=== PATIENT | male | born 1995 | race Caucasian/White ===

== ENCOUNTER 2021-07-17 01:23 | Observation (INO) | payer MEDICARE, MEDICAID, SELFPAY ==
[2021-07-17] VITALS (84 sets, daily range): BP systolic 88–129; BP diastolic 49–79; PULSE 55–90; RESP 7–24; TEMP 36.8–37.9; O2SAT 94–100
--- NOTE | 2021-07-17 01:15 | RT.EKG_ITS ---
APPROVED REPORT Exam: Resting ECG Reason for Exam: chest pain Patient Location: E HR:76 bpm ECG Measurements Heart Rate 76 AXIS NC 172 P 66 QRSd 84 QRS 94 QT 363 T 70 QTc 407 Conclusion Sinus rhythm...normal P axis, V-rate 60- 99 ST elevation suggests acute pericarditis...ST >0.10mV, ant/lat/inf Normal [place] I have reviewed and interpreted ECG and agree with software generated interpretation.
--- NOTE | 2021-07-17 01:42 | ED.GENADUL_ITS ---
Discharge Plan Disposition Patient Disposition: [facility] INPATIENT Condition: Stable Discharge Details Clinical Impression: Pneumomediastinum, COVID-19 Primary Care Provider: Taz Ferrer ED Provider: Tone Rizzo [place] Meds and New Rx's Prescriptions: No Action acetaminophen 500 mg Tablet 500 mg PO Q6H PRN0RF ibuprofen 200 mg Tablet 200 mg PO Q6H PRN0RF methylphenidate HCl [Concerta] 27 mg Tablet Extended Release 24hr 27 mg PO DAILY 0RF melatonin 5 mg Tablet 5 mg PO HS [id number] Medical Decision Making Patient presenting with onset of pleuritic type chest pain and mild dyspnea which may be related to pain as opposed to true shortness of breath. Noted to have low-grade fever in the department. He has normal heart rate and pulse oximetry. I do appreciate a friction rub on exam. His EKG is sinus rhythm with diffuse slight ST elevation which would be consistent with pericarditis. Patient has no previous recent viral illness and has felt well throughout the day today. IV in place and will dose with ketorolac, send laboratory studies, obtain chest x-ray and reevaluate. Patient laboratory studies significant for mildly elevated white count up to 12.5. Chemistry, liver function normal. Sed rate, C-reactive protein, troponin normal. Chest x-ray per my review suggests pneumomediastinum and possibly pneumopericardium. COVID swab positive for COVID. Patient improved with ketorolac. Vital signs remained normal. Patient continues to deny trauma, cough, vomiting, drug use. He does report getting angry tonight over computer again but does not specifically recall any specific action that would have increased intrathoracic pressure. CT scan of the chest obtained. Concerns pneumomediastinum from the base of the heart to the base of the neck. No pneumothorax. No lung consolidation. No remark regarding pneumopericardium. Patient has remained stable in the ED. Likely spontaneous pneumomediastinum but he is COVID-positive, does have ST changes on EKG which seen diffuse and not necessarily repolarization, has finding of friction rub and less likely [place] crunch. Discussed with hospitalist for observation admission with pulmonary consult and possibly echo later today. Hospitalist requesting discussion with Alis dodd prior to accepting admission. I discussed case with pulmonary from [facility]. Agree with plan for observation to be sure no increase subcue air, voice change, etc. Patient will be admitted to ICU here but hospitalist. Lab Data Lab results reviewed: Yes I reviewed the patient's lab results. ECG Data Attestation: I personally reviewed and interpreted this ECG (s) as follows: Prior ECG tracings: not available for review Interpretation: see EKG HPI General Mode of arrival: EMS . Date/Time Provider Initiated Documentation: 07/17/21 01:42 . Limitations to Documentation: no limitations . Information obtained by: patient and RN notes reviewed . HPI Narrative: Patient presents to the ED by ambulance with onset of pleuritic type chest pain and mild dyspnea onset a couple of hours prior. Patient reports no previous fever, cough, viral symptoms in the last few weeks. Patient denies any trauma. Pain is bilateral but seems worse on the right. It is pleuritic but it is also positional. He has no associated back pain, abdominal pain, vomiting. He denies any leg pain or swelling. He reports no significant past medical history. Related Data Home Medications Medication Instructions Recorded Confirmed acetaminophen 500 mg tablet 500 mg PO Q6H PRN 07/17/21 07/17/21 ibuprofen 200 mg tablet 200 mg PO Q6H PRN 07/17/21 07/17/21 melatonin 5 mg tablet 5 mg PO HS PRN 07/17/21 07/17/21 methylphenidate HCl 27 mg 27 mg PO DAILY 07/17/21 07/17/21 tablet,extended release 24 hr (Concerta) Allergies Allergy/AdvReac Type Severity Reaction Status Date / Time Penicillins Allergy Intermediate Hives Unverified 07/17/21 01:25 General Stated Complaint: Chest Pain LUIS F: 2 Review of Systems Narrative: 01/04 Review of Systems completed and is negative except as stated above in HPI (Systems reviewed: Const, Eyes, ENT, Resp, CV, GI, , MSK, Skin, Neuro) PFSH All Active Problems (Updated 07/17/21 @ 05:28 by Kristian Corbett MD) Pneumomediastinum (Acute) Medical History ADHD Surgical History No significant past surgical history Social History Smoking/Tobacco Use Status: Never Smoking risk assessment performed?: Yes Alcohol Intake: current Alcohol Intake frequency: holidays/special occasions only Drug use: Never Substance use type: does not use Do you feel safe at home: Yes Do you feel safe in your relationship?: Yes Exam Narrative Exam Narrative: Const: Thin male in NAD. HEENT: NC/AT. Normal facial exam. Eyes: Normal conjunctiva and sclera. Neck: Supple. Trachea midline. Lungs: Normal respiratory effort. Lungs are clear. Cor: RRR with friction rub heard best LLSB to apex. Good radial pulses. GI: Soft. NT/ND. No guarding or rebound. Neuro: A+O x 3. Normal speech, mentation, gait. Cranial nerves II - XII grossly intact. No gross motor or sensory deficit. Ext: No C/C/E. No calf tenderness. Skin: Warm and dry without rash. Course Vital Signs Vital signs: Vital Signs Temperature 100.2 F H 07/17/21 01:22 Pulse 69 07/17/21 01:22 Respiratory Rate 16 07/17/21 01:22 Blood Pressure 129/73 07/17/21 01:22 Pulse Oximetry 100 07/17/21 01:22 Temperature 100.2 F H 07/17/21 01:22 Temperature Source Skin 07/17/21 01:22 Pulse 85 07/17/21 01:31 Pulse 67 07/17/21 01:40 Respiratory Rate 19 07/17/21 01:40 Respiratory Effort Non-Labored 07/17/21 01:27 Respiratory Depth Normal 07/17/21 01:27 Respiratory Pattern Normal 07/17/21 01:27 Blood Pressure 122/69 07/17/21 01:31 Blood Pressure Mean 82 07/17/21 01:31 Blood Pressure Position Supine 07/17/21 01:22 Pulse Oximetry 100 07/17/21 01:40 Oxygen Delivery Method Room Air 07/17/21 01:22 Oxygen Flow Rate 0 07/17/21 01:22 Pain Level 7 07/17/21 01:27
--- NOTE | 2021-07-17 01:45 | DI.RAD_ITS ---
Exam(s) XR CHEST 2V PA LATERAL EXAM: XR CHEST 2V PA LATERAL CLINICAL HISTORY: chest pain TECHNIQUE: 2D digital imaging was performed of the chest. Two images were obtained. PA and lateral views were obtained. COMPARISON: No exams were available for comparison FINDINGS: MEDIASTINUM: There is pneumomediastinum present with extension into the soft tissues of the neck. HEART: Normal. PULMONARY VASCULATURE: Normal. LUNGS: Clear. PLEURAL SPACE: No pleural effusion or pneumothorax. BONE:Within normal limits for the patient's age. OTHER FINDINGS:Normal. IMPRESSION: Findings consistent with pneumomediastinum. DATA REPOSITORY: RADIATION DOSE DELIVERED:
[2021-07-17] MEDS: Ketorolac 30 MG/ML VIAL IVP (02:00)
[2021-07-17 02:09] LABS: Abs Immature Grans 0.05 10^3/uL (0.0-0.06); Absolute Basophil Count 0.04 10^3/uL (0.0-0.2); Absolute Eosinophil Count 0.12 10^3/uL (0.0-0.7); Absolute Monocyte Count 0.88 10^3/uL (0.1-0.8); Basophils % 0.3; HCT 49.5 % (40.0-50.0); HGB 16.4 g/dL (13.5-17.5); Immature Grans % 0.4; Lymphocytes % 16.5; MCHC 33.1 % (32.0-36.0); MCV 90.7 fL (80-95); MPV 11.3 fL (8.0-11.0); Monocytes % 7.1; Neutrophils % 74.7; Platelet Count 218 10^3/uL (130-400); RBC 5.46 10^6/uL (4.36-5.78); RDW 11.6 % (11.8-14.1); RDW-SD 38.5 fL; WBC 12.46 10^3/uL (4.4-10.8)
[2021-07-17 02:10] LABS: Absolute Lymphocyte Count 2.06 10^3/uL (1.2-3.4); Absolute Neutrophil Count 9.31 10^3/uL (1.2-6.7)
[2021-07-17 02:12] LABS: ESR 1 mm/hr (0-15)
[2021-07-17] MEDS: Normal Saline Flush 10 ML SYR IVP ×2 (02:14→11:01)
[2021-07-17 02:25] LABS: ALT 37 U/L (16-63); AST 16 U/L (15-37); Albumin 4.1 g/dL (3.4-5.0); Alkaline Phosphatase 55 U/L (46-116); Anion Gap 5.4 mmol/L (3-11); BUN 15 mg/dL (7-18); Bilirubin, Total 0.7 mg/dL (0.2-1.0); C-Reactive Protein 0.07 mg/dL (0.0-0.3); CO2 30.6 mmol/L (21.0-32.0); CREATININE 1.2 mg/dL (0.70-1.30); Chloride 103 mmol/L (98-107); Glucose 84 mg/dL (74-106); Magnesium 2.2 mg/dL (1.8-2.4); Potassium 4.1 mmol/L (3.5-5.1); Sodium 139 mmol/L (136-145); Total Protein 7.2 g/dL (6.4-8.2); Troponin I < 50 ng/L (<or=60)
[2021-07-17 02:52] LABS: Influenza A PCR Negative (Negative); Influenza B PCR Negative (Negative); RSV PCR Negative (Negative)
[2021-07-17 02:55] LABS: COVID-19 PCR Positive (Negative)
--- NOTE | 2021-07-17 03:30 | DI.CT_ITS ---
Exam(s) CT CHEST WO EXAM: CT CHEST WO CLINICAL HISTORY: pneumomediastinum; ? pneumopericardium on CXR. TECHNIQUE: Imaging protocol: Axial computed tomography images were obtained and coronal and sagittal reformatted images were created and reviewed. COMPARISON: CR,XR XR CHEST 2V PA LATERAL from 07/17/2021 FINDINGS: Tracheobronchial tree: Patent where visualized. Pulmonary parenchyma: No consolidation or dominant measurable mass. No architectural distortion. Mediastinum and Demetra: No dominant adenopathy or fluid collection. The esophagus is unremarkable.There is moderate pneumomediastinum with extension superiorly into the soft tissues of the neck. Thyroid gland: Unremarkable. Pleura: No effusion or pneumothorax. Heart: The heart is not dilated. No coronary artery calcifications are seen. No pericardial effusion. Aorta: Thoracic aorta non-dilated. Upper abdomen: Unremarkable. Lymph nodes: Within normal limits. Soft tissues: Unremarkable. Bones:Within normal limits for the patient's age. IMPRESSION: Moderate pneumomediastinum with the extension into the soft tissues of the neck. RADIATION DOSE DELIVERED: 537.55mGy.cm Total DLP 537.55mGy.cm Total DLP DATA REPOSITORY: All CT scans at this facility are submitted to the National Radiology Data Registry (NRDR) Dose Index Registry (DIR) with the [employer] (ACR). RADIATION OPTIMIZATION: All CT scans at this facility use at least one of these dose optimization te chniques: automated exposure control; mA and/or kV adjustment per patient size (includes targeted exa ms where dose is matched to clinical indication); or iterative reconstruction.
--- NOTE | 2021-07-17 03:47 | DI.VRAD_ITS ---
PROCEDURE INFORMATION: Exam: XR Chest Exam date and time: 07/17/2021 2:31 AM Age: 25 years old Clinical indication: Other: Chest pain TECHNIQUE: Imaging protocol: XR of the chest. Views: 2 views. COMPARISON: No relevant prior studies available. FINDINGS: Lungs: Unremarkable. No consolidation. Pleural spaces: Unremarkable. No pleural effusion. No pneumothorax. Heart/Mediastinum: Unremarkable. No cardiomegaly. Bones/joints: Unremarkable. IMPRESSION: No acute findings. Dictated and Authenticated by: Patience Erazo MD. Ordering:JAZMIN Wayne MD
--- NOTE | 2021-07-17 04:14 | DI.VRAD_ITS ---
PROCEDURE INFORMATION: Exam: CT Chest Without Contrast; Diagnostic Exam date and time: 07/17/2021 3:46 AM Age: 25 years old Clinical indication: Sternal or substernal pain; Patient HX: Pneumomediastinum; ? Pneumopericardium on cxr TECHNIQUE: Imaging protocol: Diagnostic computed tomography of the chest without contrast. 3D rendering (Not supervised by radiologist): MIP and/or 3D reconstructed images were created by the technologist. Radiation optimization: All CT scans at this facility use at least one of these dose optimization techniques: automated exposure control; mA and/or kV adjustment per patient size (includes targeted exams where dose is matched to clinical indication); or iterative reconstruction. COMPARISON: CR XR CHEST 2V PA LATERAL 07/17/2021 2:31 AM FINDINGS: Lungs: Unremarkable. No consolidation. No masses. Pleural spaces: Unremarkable. No pneumothorax. No pleural effusion. Heart: Unremarkable. No cardiomegaly. No pericardial effusion. Mediastinal space: [id number] pneumomediastinum is seen extending from the base of the heart into the lower neck. Lymph nodes: Unremarkable. No enlarged lymph nodes. Aorta: Unremarkable. No aortic aneurysm. Bones/joints: Unremarkable. No acute fracture. Soft tissues: Unremarkable. IMPRESSION: [id number] pneumomediastinum. Dictated and Authenticated by: Patience Erazo MD. Ordering:JAZMIN Wayne MD
--- NOTE | 2021-07-17 05:16 | W.PM.HP.N ---
Date of service: 07/17/21 Time of Service: 05:17 Assessment and Plan Assessment and plan (1) Pneumomediastinum: Status: Acute Assessment and plan: Spontaneous pneumomediastinum, without cardiopulmonary complications. The presence of COVID appears to be incidental, or at any rate I can find no relation. The EKG findings did initially raise question of pericarditis but the pneumomediatinum is a hard finding and I suspect the EKG findings are probably a baseline normal variant. As to the findings on cardiac exam there was also some initial question of whether this could represent a pericardial rub, but this is notably not three phased and the overwhelming preponderance of evidence here is of pneumomediastinum, so I would rate this as a Winter crunch. Case has been reviewed with [facility] pulmonary, concurs with our impressions. Advises observation and general supportive measures. As to the COVID patient not high risk so no specific treatment to be instituted. History of Present Illness History of Present Illness Chief Complaint: chest pain Narrative: 25 male with PMH only of ADHD, fully vaccinated and boosted -- here with sudden onset of chest pain, described as a sense of fullness. No SOB, nausea. Reports this awoke him from sleep. States pain is not related to position. In ER findings of note for temp 37.9, systolic heart sound described as either a crunch or rub; white count 12.4; EKG with approx 1/[address] elevations in most leads, without MI depression or TW changes; CXR showing question of pneumomediastinum (though formal read negative) and CT chest confirming presence of pneumomediastinum from base of heart to neck. COVID is positive. Troponiin negative. Pateint given 30 mg Toradol with good effect. I was asked to evaluate for admission. Review of Systems Narrative: per HPI PFSH All Active Problems (Updated 07/17/21 @ 05:28 by Kristian Corbett MD) Pneumomediastinum (Acute) Medical History ADHD Surgical History No significant past surgical history Social History Smoking/Tobacco Use Status: Never Smoking risk assessment performed?: Yes Alcohol Intake: current Alcohol Intake frequency: holidays/special occasions only Drug use: Never Substance use type: does not use Do you feel safe at home: Yes Do you feel safe in your relationship?: Yes Meds Allergies and Home Medications Allergies Allergy/AdvReac Type Severity Reaction Status Date / Time Penicillins Allergy Intermediate Hives Unverified 07/17/21 01:25 Home Medications Medication Instructions Recorded Confirmed Type acetaminophen 500 mg tablet 500 mg PO Q6H PRN 07/17/21 07/17/21 History ibuprofen 200 mg tablet 200 mg PO Q6H PRN 07/17/21 07/17/21 History melatonin 5 mg tablet 5 mg PO HS PRN 07/17/21 07/17/21 History methylphenidate HCl 27 mg 27 mg PO DAILY 07/17/21 07/17/21 History tablet,extended release 24 hr (Concerta) Exam Narrative Exam Narrative: 121/71, with pulsus paradoxus of zero to my exam, 66, 37.9, 21, 98% RA. HEENT atraumatic; neck supple; lungs clear chest no crepitus; heart RRR with crunching type systolic sound heard diffusely; abdomen soft and NT; extremities w/o edema; neuro Ox3, lucid. moves all 4s Results Labs Result diagrams: 07/17/21 01:35 07/17/21 01:35 Labs: Laboratory Results - last 24 hr 07/17/21 07/17/21 07/17/21 01:35 01:35 01:35 WBC 12.46 H RBC 5.46 Hgb 16.4 Hct 49.5 MCV 90.7 MCH 30.0 MCHC 33.1 RDW 11.6 L Plt Count 218 MPV 11.3 H Immature Gran % 0.4 Neutrophils % 74.7 Lymphocytes % 16.5 Monocytes % 7.1 Eosinophils % 1.0 Basophils % 0.3 Nucleated RBC % 0.0 Absolute Neutrophils 9.31 H Absolute Lymphocytes 2.06 Absolute Monocytes 0.88 H Absolute Eosinophils 0.12 Absolute Basophils 0.04 ESR 1 Sodium 139 Potassium 4.1 Chloride 103 Carbon Dioxide 30.6 Anion Gap 5.4 BUN 15 Creatinine 1.2 Estimated GFR/1.73 m2 >= 60.00 Glucose 84 Calcium 9.0 Magnesium 2.2 Total Bilirubin 0.7 AST 16 ALT 37 Alkaline Phosphatase 55 Troponin I < 50 C-Reactive Protein 0.07 Total Protein 7.2 Albumin 4.1 COVID-19 Source SARS-CoV-2 (PCR) Influenza Type A (PCR) Influenza Type B (PCR) RSV (PCR) 07/17/21 02:10 WBC RBC Hgb Hct MCV MCH MCHC RDW Plt Count MPV Immature Gran % Neutrophils % Lymphocytes % Monocytes % Eosinophils % Basophils % Nucleated RBC % Absolute Neutrophils Absolute Lymphocytes Absolute Monocytes Absolute Eosinophils Absolute Basophils ESR Sodium Potassium Chloride Carbon Dioxide Anion Gap BUN Creatinine Estimated GFR/1.73 m2 Glucose Calcium Magnesium Total Bilirubin AST ALT Alkaline Phosphatase Troponin I C-Reactive Protein Total Protein Albumin COVID-19 Source Not Applicable SARS-CoV-2 (PCR) Positive A Influenza Type A (PCR) Negative Influenza Type B (PCR) Negative RSV (PCR) Negative Last Vital Signs Temp 37.9 C H 07/17/21 01:22 Pulse 66 07/17/21 04:16 Resp 21 07/17/21 04:20 BP 121/71 07/17/21 04:16 Pulse Ox 98 07/17/21 04:20
[2021-07-17] MEDS: ACETAMINOPHEN 1,000 MG/100 ML BTL 400 MG IVPB (05:37)
--- NOTE | 2021-07-17 07:45 | W.PULMCC ---
General Date of Service Date of service: 07/17/21 Time of Service: 07:45 Reason for Admission to ICU: Pneumomediastinum Assessment and Plan Assessment and plan (1) Pneumomediastinum: Status: Acute (2) COVID-19: Status: Acute (3) Leukocytosis: Status: Acute Assessment and plan: This is a healthy 25 yo man who was found to have a pneumomediastinum and COVID. He had some mild coughing yesterday, which could have potentially been the cause of his pneumomediastinum, however, as the etiology is not extremely clear, he should undergo a barium swallow to rule out esophageal perforation as the cause of the pneumomediastinum. If this returns negative then he should be safe for discharge with close follow up by his PCP. I do not agree with the read of ST elevations on his EKG, this is more likely early repolarization in this young man. There is no clinical sign or symptoms of pericarditis and would not pursue this further. Recommendations Pulmonary: Pneumomediastinum - symptoms improving - recommend barium swallow to r/o esophageal cause - if negative can be discharged from my perspective with close PCP follow up Cardiac: No acute concerns Renal: No acute concerns I&O: Intake & Output 07/14/21 07/15/21 07/16/21 07/17/21 23:59 23:59 23:59 23:59 Intake Total 100 / 100 Balance 100 / 100 Weight 72 kg Daily Fluid Goal:: even GI Nutrition: Diet ok Infectious Disease: COVID-19 - essentially asymptomatic - would not treat with anything - he should quarentine per CDC rec's when at home Hematologic: Leukocytosis - reactive Neurologic: No acute concerns Endocrine: No acute concerns Lines: PIV Prophylaxis: None needed as he will likely be discharged Code Status: Resuscitation Status Full Code Subjective Critical and life-threatening events over the past 24 hours: This is a 25 yo man who is otherwise healthy and presented to the ED after sudden chest pain. He was found to be COVID+ and also found to have a pneumomediastinum without pneumothorax. He has some coughing yesterday but did not think it was overly aggressive. He does not smoke or use marijuana. There was question of pericarditis from his ED EKG noting diffuse ST elevations, however I disagree with this assessment. Given his age this appearance is more consistent with early repolarization as opposed to ST elevations. There are no LA depressions present. He is doing well. Not having chest pains, no trouble breathing. He denies fevers, trouble breathing or chest pains prior to the sudden onset of chest pain last night. Exam Narrative Exam Narrative: Gen: NAD, normal respiratory effort, well-nourished HENT: PERRL, nasal turbinates normal without erythema or inflammation, moist oral mucosa, Mallampati 2, No LAD or JVD Chest: No respiratory distress, normal appearance of chest, clear to auscultation bilaterally, no crackles or wheezes, normal inspiratory effort, subcutaneous emphysema appreciated Heart: regular rate and rhythym, no murmurs, rubs or gallops Abdomen: Non-distended, soft, non tender Extremities: No clubbing, edema, cyanosis, rashes Neuro: AAOx3 , non focal Psych: cooperative, appropriate mental affect Most Recent VS/Results Last Vital Signs Temp 37.2 C 07/17/21 06:48 Pulse 65 07/17/21 06:32 Resp 13 07/17/21 06:40 BP 126/68 07/17/21 06:32 Pulse Ox 100 07/17/21 06:40 Laboratory Results - last 24 hr 07/17/21 07/17/21 07/17/21 01:35 01:35 01:35 WBC 12.46 H RBC 5.46 Hgb 16.4 Hct 49.5 MCV 90.7 MCH 30.0 MCHC 33.1 RDW 11.6 L Plt Count 218 MPV 11.3 H Immature Gran % 0.4 Neutrophils % 74.7 Lymphocytes % 16.5 Monocytes % 7.1 Eosinophils % 1.0 Basophils % 0.3 Nucleated RBC % 0.0 Absolute Neutrophils 9.31 H Absolute Lymphocytes 2.06 Absolute Monocytes 0.88 H Absolute Eosinophils 0.12 Absolute Basophils 0.04 ESR 1 Sodium 139 Potassium 4.1 Chloride 103 Carbon Dioxide 30.6 Anion Gap 5.4 BUN 15 Creatinine 1.2 Estimated GFR/1.73 m2 >= 60.00 Glucose 84 Calcium 9.0 Magnesium 2.2 Total Bilirubin 0.7 AST 16 ALT 37 Alkaline Phosphatase 55 Troponin I < 50 C-Reactive Protein 0.07 Total Protein 7.2 Albumin 4.1 COVID-19 Source SARS-CoV-2 (PCR) Influenza Type A (PCR) Influenza Type B (PCR) RSV (PCR) 07/17/21 02:10 WBC RBC Hgb Hct MCV MCH MCHC RDW Plt Count MPV Immature Gran % Neutrophils % Lymphocytes % Monocytes % Eosinophils % Basophils % Nucleated RBC % Absolute Neutrophils Absolute Lymphocytes Absolute Monocytes Absolute Eosinophils Absolute Basophils ESR Sodium Potassium Chloride Carbon Dioxide Anion Gap BUN Creatinine Estimated GFR/1.73 m2 Glucose Calcium Magnesium Total Bilirubin AST ALT Alkaline Phosphatase Troponin I C-Reactive Protein Total Protein Albumin COVID-19 Source Not Applicable SARS-CoV-2 (PCR) Positive A Influenza Type A (PCR) Negative Influenza Type B (PCR) Negative RSV (PCR) Negative Review of Systems All systems reviewed & are unremarkable except as noted in HPI and below Time spent with patient Time spent in Critical Care: 35 Time spent in Critical care included: Chart review, Documenting critically ill care, Time at immediate bedside and Discussing critically ill care with other medical staff
[2021-07-17] MEDS: Ondansetron 4 MG/2 ML VIAL IVP (11:01)
--- NOTE | 2021-07-17 14:59 | PDOC.CMIN ---
- If Service Date Differs Date of service: 07/17/21 Time of Service: 14:59 Care Management Initial Assess REASON FOR HOSPITALIZATION:: Spontaneous Pneumomediastinum, Covid-19. PAST MEDICAL HISTORY/PAST SURGICAL HISTORY:: All Active Problems: Pneumomediastinum (Acute). Medical History: ADHD. Surgical History: No significant past surgical history. 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 When not in school, he lives in [place], [place], with his father and step-mother. He is the youngest of six siblings and states some of his siblings live locally and are supportive of him. He also names his dad and step-mom as a source of support. During his free time, he enjoys playing games and creating art. Gamaliel is independent with his ADLs at baseline. CURRENT FUNCTIONAL STATUS:: Gamaliel is positive for Covid-19, so CM is unable to meet with him but does speak with him on the phone. Gamaliel hopes to be discharged from the hospital today. He had a barium swallow test this afternoon and the results of that test will dictate next steps. ADVANCE DIRECTIVES:: None on file. Has patient been provided with info about the portal/API?: Yes Did the patient sign up for the portal?: No CODE STATUS:: Full Code INSURANCE COVERAGE / FINANCIAL ISSUES:: Medicare and [facility]. CURRENT HOME/COMMUNITY SERVICES/EQUIPMENT:: None. PRIMARY CARE PHYSICIAN:: Taz Ferrer MD. POTENTIAL DISCHARGE NEEDS:: Follow up appointments with PCP and pulmonology. PATIENT/FAMILY EDUCATION NEEDS:: Review discharge instructions including follow up plan of care; discuss [employer] Me [employer]. ANTICIPATED BARRIERS TO DISCHARGE:: No anticipated barriers at this time. TRANSPORTATION:: [facility] will provide transportation via private vehicle. PLAN:: Gamaliel will return to the [facility] dorm when medically cleared by provider. He will isolate at the [facility] until he is no longer considered infectious. He will follow up with his PCP, pulmonology and plan of care as directed upon discharge. [facility] will provide transportation via private vehicle when ready. CM will continue to follow.
[2021-07-17] MEDS: Gastrografin 120 ML BTL 50 ML PO (15:15)
--- NOTE | 2021-07-17 15:16 | DI.RAD_ITS ---
Exam(s) RF BARIUM SWALLOW EXAM: RF BARIUM SWALLOW CLINICAL HISTORY: Pneumomediastinum TECHNIQUE: 2D and realtime digital imaging was performed. CONTRAST MATERIAL: Oral barium Oral water soluble contrast was administered. COMPARISON: No exams were available for comparison FINDINGS: CHEST X-RAY: The heart and pulmonary vasculature are within normal limits. The lungs are clear. No pl eural effusion or pneumothorax is present. The bones are within normal limits for the patient's age. Pneumomediastinum is again seen. ESOPHAGRAM: The examination was first performed with Gastrografin then followed with oral barium. Th e esophagus is patent with no evidence for erosions, fold thickening, strictures, or masses. With reg ards to the motility, there is a normal primary stripping wave. No tertiary contractions were noted. There is no hiatal hernia or gastroesophageal reflux. There is no extravasation of contrast. IMPRESSION: 1. Normal esophogram 2. No evidence of contrast extravasation. RADIATION DOSE DELIVERED: Ka,r= mGy
--- NOTE | 2021-07-17 17:11 | DSE_ITS ---
Date of service: 07/17/21 Time of Service: 17:13 DS: Diagnosis Discharge Diagnosis (1) Pneumomediastinum: Status: Acute (2) COVID-19: Status: Acute (3) Leukocytosis: Status: Acute Discharge Plan Disposition Patient Disposition: HOME Condition: Good Discharge Details Reason For Visit: Spontaneous Pneumomediastinum,COVID Admit Date/Time: 07/17/21 05:36 Admit Provider: Kristian Corbett Attending Provider: Kristian Corbett Primary Care Provider: Taz Ferrer Hospital Course Hospital Course: This is a 25 yo male with PMH only of ADHD, fully vaccinated and boosted -- here with sudden onset of chest pain, described as a sense of fullness. No SOB, tate sea. Reports this awoke him from sleep. States pain is not related to position. In ER findings of note for temp 37.9, systolic heart sound described as either a crunch or rub; white count 12.4; EKG with approx 1/2 mm? ST elevations in most leads, without [place] depression or TW changes; CXR showing question of pneumomediastinum (though formal read negative) and CT chest confirming presence of pneumomediastinum from base of heart to neck. COVID is positive. Troponiin negative. Pateint given 30 mg Toradol with good effect. He underwent a barium swallow exam to r/o a perforation of his esophagus; the study was negative. His pain/discomfort improved. He will d/c to home; if develops any worsening respiratory symptoms he should call his PCP, but currently he is asymptomatic from the COVID infection. Follow up with PCP in 1-2 weeks Home Meds and New Rx's Prescriptions: Continued acetaminophen 500 mg Tablet 500 mg PO Q6H PRN0RF ibuprofen 200 mg Tablet 200 mg PO Q6H PRN0RF methylphenidate HCl [Concerta] 27 mg Tablet Extended Release 24hr 27 mg PO DAILY 0RF melatonin 5 mg Tablet 5 mg PO HS [id number] Discharge Instructions Activity:: Activity as Tolerated Equipment/Supplies:: No Equipment Needed Diet:: Resume usual diet Discharge Orders Discharge Orders: Discharge Order (Routine); Ordered 07/17/21 Ordered By: Ronak West DS: Summary Time Spent with Patient providing and/or coordinating discharge services: Less than 30 minutes Status at Discharge Functional status at discharge: independent ambulation Overall status at discharge: patient is progressing back to baseline Mental Status: mental status grossly normal Speech and Movement: speech and movement normal Mood: congruent mood Affect: normal affect Exam Const General: cooperative Nutritional Appearance: thin Orientation: alert and oriented x3 Eyes General: appearance normal, both eyes and all related structures Sclera: sclerae normal Resp Effort & Inspection: normal respiratory effort Auscultation: clear to auscultation bilaterally Cardio Rate: regular rate Rhythm: regular rhythm Heart Sounds: S1 normal and S2 normal Extrem General: no pedal edema and no calf tenderness Psych Appearance: grossly normal Mental Status: mental status grossly normal Speech and Movement: speech and movement normal Mood: congruent mood Affect: normal affect DS: Data Vitals/I&O Vitals and I&O: Vital Signs Temperature 37.0 C 07/17/21 08:30 Temperature Source Tympanic 07/17/21 08:30 Pulse 68 07/17/21 09:01 Pulse 70 07/17/21 09:20 Respiratory Rate 14 07/17/21 09:20 Respiratory Effort Non-Labored 07/17/21 08:30 Respiratory Depth Normal 07/17/21 08:30 Respiratory Pattern Normal 07/17/21 08:30 Blood Pressure 101/49 L 07/17/21 09:01 Blood Pressure Mean 61 07/17/21 09:01 Blood Pressure Position Supine 07/17/21 08:30 Pulse Oximetry 98 07/17/21 09:10 Oxygen Delivery Method Room Air 07/17/21 08:30 Oxygen Flow Rate 0 07/17/21 08:30 Pain Level 1 07/17/21 08:30 Intake & Output 07/16/21 07/17/21 07/17/21 23:59 11:59 23:59 Intake Total 100 / 100 Output Total 650 / 650 Balance 100 / -550 -650 / -550 Weight 72 kg Intake: IV 100 / 100 Output: Urine 650 / 650 Other: Urine Color Light Kiersten Dark Kiersten Urine Appearance Clear Voiding Methods Urinal Data Completed and Pending Labs on day of discharge: Labs from last 24 hours 07/17/21 07/17/21 07/17/21 02:10 01:35 01:35 WBC 12.46 H RBC 5.46 Hgb 16.4 Hct 49.5 MCV 90.7 MCH 30.0 MCHC 33.1 RDW 11.6 L Plt Count 218 MPV 11.3 H Immature Gran % 0.4 Neutrophils % 74.7 Lymphocytes % 16.5 Monocytes % 7.1 Eosinophils % 1.0 Basophils % 0.3 Nucleated RBC % 0.0 Absolute Neutrophils 9.31 H Absolute Lymphocytes 2.06 Absolute Monocytes 0.88 H Absolute Eosinophils 0.12 Absolute Basophils 0.04 ESR 1 Sodium Potassium Chloride Carbon Dioxide Anion Gap BUN Creatinine Estimated GFR/1.73 m2 Glucose Calcium Magnesium Total Bilirubin AST ALT Alkaline Phosphatase Troponin I C-Reactive Protein Total Protein Albumin COVID-19 Source Not Applicable SARS-CoV-2 (PCR) Positive A Influenza Type A (PCR) Negative Influenza Type B (PCR) Negative RSV (PCR) Negative 07/17/21 01:35 WBC RBC Hgb Hct MCV MCH MCHC RDW Plt Count MPV Immature Gran % Neutrophils % Lymphocytes % Monocytes % Eosinophils % Basophils % Nucleated RBC % Absolute Neutrophils Absolute Lymphocytes Absolute Monocytes Absolute Eosinophils Absolute Basophils ESR Sodium 139 Potassium 4.1 Chloride 103 Carbon Dioxide 30.6 Anion Gap 5.4 BUN 15 Creatinine 1.2 Estimated GFR/1.73 m2 >= 60.00 Glucose 84 Calcium 9.0 Magnesium 2.2 Total Bilirubin 0.7 AST 16 ALT 37 Alkaline Phosphatase 55 Troponin I < 50 C-Reactive Protein 0.07 Total Protein 7.2 Albumin 4.1 COVID-19 Source SARS-CoV-2 (PCR) Influenza Type A (PCR) Influenza Type B (PCR) RSV (PCR) PFSH All Active Problems Leukocytosis (Acute) COVID-19 (Acute) Pneumomediastinum (Acute) Medical History ADHD Surgical History No significant past surgical history Social History Smoking/Tobacco Use Status: Never Smoking risk assessment performed?: Yes Alcohol Intake: current Alcohol Intake frequency: holidays/special occasions only Drug use: Never Substance use type: does not use Do you feel safe at home: Yes Do you feel safe in your relationship?: Yes
--- NOTE | 2021-07-17 17:54 | PDOC.CMDIS ---
- If Service Date Differs Date of service: 07/17/21 Time of Service: 17:54 LACE Index Scoring Tool - Questions: Length of Stay (in days): 1 Acuity (Admit via E.D.?): Yes E.D. Visits: 1 - Answers: Total Score: 5 Risk of Readmission: Low Risk Care Management Discharge Reason for Hospitalization: Spontaneous Pneumomediastinum, Covid-19. Discharge Plan: Gamaliel is discharged to the [facility] where he will remain in isolation until he is no longer infectious. He will follow up with his PCP and discharge plan of care as instructed. [facility] is providing transportation via private vehicle. Patient/Family Education Needs: Review of discharge instructions and discuss Ask Me Three.
== END 2021-07-17 18:30 | disposition home or self-care (01) ==
LOC: ER 06:44 → ICU 06:46
PROVIDERS: Admitting Provider General Practice; Emergency Provider Emergency Medicine; PCP Family Medicine; Visit Provider General Practice
DX: J98.2 Interstitial emphysema (principal); U07.1 COVID-19; F90.9 Attention-deficit hyperactivity disorder, unspecified type; R01.2 Other cardiac sounds; R94.31 Abnormal electrocardiogram [ECG] [EKG]; D72.829 Elevated white blood cell count, unspecified
CPT/HCPCS: 71250; 80053; 85652; 87637; 93005; 96365; 96374; 96375; 99285; 71046; 74221; 83735; 84484; 85025; 86140; 93010; 99235; J0131; J1885; J2405